=== PATIENT | male | born 1990 ===

== ENCOUNTER 2017-11-26 08:48 | Inpatient (IN) | payer MEDICAID, OTHER ==
[2017-11-26 08:58] VITALS: RESP 20; TEMP 98.1; O2SAT 98
--- NOTE | 2017-11-26 09:59 | PCM.PSYCH ---
Initial Psychiatric Evaluation - Initial Psychiatric Evaluation Type of Admission: Voluntary Legal Status: Capacity Chief Complaint (in patient's own words): "I was not well" History of Present Illness and Precipitating Events: The pt is seen, chart reviewed and case discussed He is a 27 y/o LM, single, with an 8 y/o son (not with him) Pt lives with his mother and is unemployed He is here b/c of psychotic episode. He had been paranoid, odd/bizarre in behavior but now he minimizes them all. The pt was on adderall and lately he "decreased" that but he still got psychotic. He maybe overusing that. He feels depressed, too but denies SI. He was transferred from [facility] ED where he was taken b/c of the psychosis that was going on less than 6 months No other drug or alcohol abuse No major stressors No past psych hx except for ADHD Medical; Overweight Family psych hx: Denies Past Psychiatric History - Past Psychiatric History Previous Treatment History: Intensive Outpatient Pertinent Medical Hx (Current Medical&Sleep Prob, Allergies): Allergies Allergy/AdvReac Type Severity Reaction Status Date / Time No Known Allergies Allergy Verified 11/26/17 09:01 No Known Home Med 11/26/17 Review of Systems - Psychiatric Psychiatric: Abnormal Sleep Pattern, Anhedonia, Anxiety, Change in Appetite, Depression, Difficulty Concentrating, Hallucinations, Irritability, Paranoia. absent: Homicidal Ideation, Suicidal Ideation Mental Status Examination - Personal Presentation Personal Presentation: Looks older than stated age - Affect Affect: Constricted - Motor Activity Motor Activity: Calm - Reliability in Providing Information Reliability in Providing Information: Good - Speech Speech: Organized - Mood Mood: Depressed, Anxious - Formal Thought Process Formal Thought Process: No Impairment - Cognitive Functions Orientation: Person, Place, Situation, Time Sensorium: Alert Attention/Concentration: Easily distracted Abstract Thinking: [place] Estimate of Intelligence: Below average Judgement: Intact, as evidence by: Insight regarding need for hospitalization Memory: Recent intact, as evidence by: Ability to recall events of the day, Efrem te impaired as evidenced by: Inability to recall sig life events - Risk Risk: Diminished functioning - Strength & Assets Inventory Strength & Assets Inventory: Cooperative DSM 5 DX - DSM 5 DSM 5 Diagnosis: 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
--- NOTE | 2017-11-26 10:51 | C.PDOC ---
History Of Present Illness 27 y/o male presents via ambulance, transferred here for inpatient psych admission. Patient was previously seen and evaluated at [facility] accepted to psychiatric service. On arrival patient appears calm, cooperative. Denies any SI/HI. Time Seen by Provider: 11/26/17 09:00 Chief Complaint (Nursing): Psychiatric Evaluation History Per: Patient History/Exam Limitations: no limitations Onset/Duration Of Symptoms: Days Current Symptoms Are (Timing): Still Present Past Medical History Reviewed: Historical Data, Nursing Documentation, Vital Signs Vital Signs: Last Vital Signs Temp 98.1 F 11/26/17 08:55 Pulse 80 11/26/17 08:55 Resp 20 11/26/17 08:55 BP 125/84 11/26/17 08:55 Pulse Ox 98 11/26/17 08:55 - Medical History PMH: No Chronic Diseases Surgical History: No Surg Hx Family History: States: No Known Family Hx - Social History Hx Tobacco Use: Yes Hx Alcohol Use: Yes Hx Substance Use: No - Immunization History Hx Tetanus Toxoid Vaccination: No Hx Influenza Vaccination: No Hx Pneumococcal Vaccination: No Review Of Systems Except As Marked, All Systems Reviewed And Found Negative. Constitutional: Negative for: Fever Respiratory: Negative for: Shortness of Breath Gastrointestinal: Negative for: Vomiting Psych: Positive for: Depression. Negative for: Suicidal ideation Physical Exam - Physical Exam Appears: Non-toxic, No Acute Distress, Other ( male) Skin: Normal Color, Warm, Dry Head: Atraumatic, Normacephalic Eye(s): bilateral: Normal Inspection Neck: Normal ROM Chest: Symmetrical Cardiovascular: Rhythm Regular, No Murmur Respiratory: Normal Breath Sounds, No Accessory Muscle Use Extremity: Bilateral: Atraumatic, Normal Color And Temperature Neurological/Psych: Oriented x3, Normal Speech, Other (Flat affect) ED Course And Treatment O2 Sat by Pulse Oximetry: 98 (RA) Pulse Ox Interpretation: Normal Medical Decision Making Medical Decision Making: Pt already accepted to psychiatric servie. Admit orders placed. Disposition Counseled Patient/Family Regarding: Diagnosis - Disposition Disposition: HOSPITALIZED Disposition Time: 09:01 Condition: STABLE - POA Present On Arrival: None - Clinical Impression Clinical Impression: Depression - Scribe Statement The provider has reviewed the documentation as recorded by the Scribe (Magaly Block) Provider Attestation: All medical record entries made by the Scribe were at my direction and personally dictated by me. I have reviewed the chart and agree that the record accurately reflects my personal performance of the history, physical exam, medical decision making, and the department course for this patient. I have also personally directed, reviewed, and agree with the discharge instructions and disposition.
[2017-11-26 16:02] VITALS: BP 108/74; PULSE 74
--- NOTE | 2017-11-27 09:04 | PCM.BM ---
<Sue Melton - Last Filed: 11/27/17 09:01> Treatment Plan Problems - Problems identified on initial assessmt Stress Date Initiated: 11/27/17 Time Initiated: 09:02 Assessment reference: NA Status: Active Treatment assets and liabiliti Patient Assests: cooperative, physically healthy, good support system Patient Liabilities: other (learning disability) - Milieu Protocol Maintain good personal hygiene: daily Encourage regular showers, daily Remind patient to perform daily oral care, daily Assist patient to perform ADL's Conduct patient checks and document Observation sheet: Q15 minutes Maintain personal safety: every shift Educate patient to report safety concerns to staff, every shift Monitor environment for contraband/sharps Medication safety: Monitor for expected outcome, potential side effects: every shift, Assess barriers to learning: every shift, Assess readiness for medication education: every shift <Lupe Cornejo - Last Filed: 11/27/17 10:56> Family Contact Family involvement: Family/SO is involved Family contact: Patient agrees to contact Family contact name: Adriana Raya-mother Family contacted how many times per week?: 1 - Goals for Treatment Patient goals for treatment: "I want to go home." Discharge/Continuing Care - Education Needs Education Needs: Patient Medication, Patient Coping Skills - Discharge Discharge Criteria: Tolerates medication w/o severe side effects, Reduction of target symptoms Discharge to:: Home, With Family - Treatment Team Participation Discussed with Family/SO: Yes (Pt's mother is in agreement with pt's discharge.) Was Patient/Family/SO present at Treatment Team Meeting: Yes <Dg Villalobos - Last Filed: 11/30/17 13:30> - Diagnosis (1) Depression Status: Acute Interventions: 11/27/17 13:30 * Assess/adjust medications daily and /or as needed * See patient on an individual basis 7x/week to assess symptoms of depression * Monitor for side effects & effectiveness of medications *
--- NOTE | 2017-11-27 11:37 | PCM.PYCHDC ---
Mental Status Examination - Mental Status Examination Orientation: Person, Place, Situation, Time Memory: Intact Mood: Anxious Affect: Constricted Speech: Appropriate Attention: WNL Concentration: WNL Association: WNL Fund of Knowledge: WNL Formal Thought Process: No Impairment Suicidal Ideation: No Current Homicidal Ideation?: No Discharge Summary - Discharge Note Reason for Hospitalization: Acute psychosis Consultations:: List each consultation separately and include: 1. Reason for request. 2. Findings. 3. Follow-up Summary of Hospital Course include:: 1. Description of specific treatment plan utilized for patients during their course of treatmen. 2. Summarize the time- course for resolution of acute symptoms and/or regressed behaviors. 3. Describe issues identified and worked on during hospitalization. 4. Describe medication utilized. 5. Describe medical problems identified and treated. 6. Reassessment of suicide risk Summary of Hospital Course: The pt was admitted and started on treatment with psychotherapy, support, psychoeducation and medications. The pt attended few groups and activities, as well as milieu therapy. All the risks and benefits of medications are discussed and the patient understood and agreed. The pt improved with the treatments provided. After care discussed with the patient. He will go to an outpatient psychiatrist. 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 Risks of leaving early (he had a 48-hour note) discussed but he still left. He said he would continue the risperdal and the newly started wellbutroin xl, ofr depression. He and his mother are warned to not have him use adderall again. He agreed. - Final Diagnosis (DSM 5) Condition upon Discharge: IMPROVED DSM 5: Schizophreniform d/o - acute exacerbation Depressive d/o - unspecified Amphetamine use d/o - severe Disposition: HOME/ ROUTINE Follow-up Treatment Plan: Continue below medications after discharge. Follow after care plan as discussed. Use relapse prevention skills Return to ER or call 911 if suicidal, homicidal or symptoms relapse. Stay away from stress, alcohol and drugs. See primary doctor regularly and get labs. Prescriptions/Medication Reconciliation: buPROPion XL [Wellbutrin XL] 150 mg PO DAILY #30 t24 risperiDONE [RisperDAL Tab] 2 mg PO HS #30 tab - Smoking Cessation Smoking Cessation Medication prescribed: No - Antipsychotic Medications Pt discharged on 2 or more routine antipsychotic medications: No
[2017-11-28] MEDS ORDERED: buPROPion 150 mg/24 Hours XL Tab PO SCH (10:00)
== END 2017-11-27 15:01 | disposition home or self-care (01) | DRG 754 ==
LOC: C.ER 08:48 → C.5E 09:01
PROVIDERS: ADMIT Psychiatry & Neurology Psychiatry; ATTEND Psychiatry & Neurology Psychiatry
PROC: GZHZZZZ Group Psychotherapy (ICD-10-PCS; principal; 2017-11-26)
PROC: GZ58ZZZ Individual Psychotherapy, Cognitive-Behavioral (ICD-10-PCS; 2017-11-26)
PROC: GZ56ZZZ Individual Psychotherapy, Supportive (ICD-10-PCS; 2017-11-26)
DX: F32.9 Major depressive disorder, single episode, unspecified (principal)